=== PATIENT | female | born 1960 | race Caucasian/White ===

== ENCOUNTER 2016-10-14 15:34 | Emergency (ER) | payer MEDICAID ==
[~2016-10-14] VITALS: Ht 170.2 cm; Wt 68.0 kg
[2016-10-14 16:01] VITALS: BP 137/97
== END 2016-10-14 16:19 | disposition home or self-care (01) ==
LOC: ER 15:40
DX: J20.9 Acute bronchitis, unspecified (principal); J45.909 Unspecified asthma, uncomplicated; F17.210 Nicotine dependence, cigarettes, uncomplicated; R51 Headache

== ENCOUNTER 2016-10-30 17:45 | Emergency (ER) | payer MEDICAID ==
[~2016-10-30] VITALS: Ht 170.2 cm; Wt 68.0 kg
[2016-10-30 18:14] VITALS: BP 118/77
[2016-10-30] MEDS ORDERED: HYDROcodone-ACET 10/325MG TAB PO ONE (18:45)
== END 2016-10-30 18:56 | disposition home or self-care (01) ==
LOC: ER 17:46
DX: G89.29 Other chronic pain (principal); M54.9 Dorsalgia, unspecified; F17.210 Nicotine dependence, cigarettes, uncomplicated; J45.909 Unspecified asthma, uncomplicated; Z76.0 Encounter for issue of repeat prescription

== ENCOUNTER 2016-11-05 14:41 | Emergency (ER) | payer MEDICAID ==
[~2016-11-05] VITALS: Ht 170.2 cm; Wt 68.5 kg
[2016-11-05 15:00] VITALS: BP 121/95
== END 2016-11-05 16:43 | disposition home or self-care (01) ==
LOC: ER 14:42
DX: S81.012A Laceration without foreign body, left knee, initial encounter (principal); G89.29 Other chronic pain; M54.2 Cervicalgia; M54.5 Low back pain; J45.909 Unspecified asthma, uncomplicated; F17.200 Nicotine dependence, unspecified, uncomplicated; X58.XXXA Exposure to other specified factors, initial encounter; Y93.89 Activity, other specified; Y99.8 Other external cause status; Y92.89 Other specified places as the place of occurrence of the external cause
CPT/HCPCS: 72040

== ENCOUNTER 2016-11-19 18:02 | Emergency (ER) | payer MEDICAID ==
[~2016-11-19] VITALS: Ht 170.2 cm; Wt 65.0 kg
[2016-11-19 23:01] VITALS: BP 96/73
== END 2016-11-20 00:12 | disposition home or self-care (01) ==
LOC: ER 18:04
DX: S13.4XXA Sprain of ligaments of cervical spine, initial encounter (principal); J45.909 Unspecified asthma, uncomplicated; F17.210 Nicotine dependence, cigarettes, uncomplicated; W19.XXXA Unspecified fall, initial encounter; Y93.89 Activity, other specified; Y99.8 Other external cause status; Y92.89 Other specified places as the place of occurrence of the external cause
CPT/HCPCS: 72040

== ENCOUNTER 2017-07-28 13:34 | Inpatient (IN) | payer MEDICAID ==
[~2017-07-28] VITALS: Ht 162.6 cm; Wt 71.4 kg
[2017-07-28] MEDS ORDERED: SODIUM CHLORIDE 0.9% 1,000 ML IV ONE (13:40)
[2017-07-28 14:12] LABS: Basophils # (auto) 0 uL; Basophils % (auto) 0.2 % (0.0-2.0); Eosinophils # (auto) 0.1 uL; Eosinophils % (auto) 0.6 % (0.0-7.0); Hematocrit 40.6 % (36.0-46.0); Hemoglobin 12.3 g/dL (12.2-16.2); Lymphocytes # (auto) 1.9 uL; Lymphocytes % (auto) 15.9 % (10.0-50.0); Mean Corpuscular Hemoglobin 26.5 pg (28.0-32.0); Mean Corpuscular Hgb Conc. 30.3 g/dL (32.0-36.0); Mean Corpuscular Volume 87.4 fL (80.0-100.0); Mean Platelet Volume 6.6 fL (6.9-10.8); Monocytes # (auto) 0.7 uL; Monocytes % (auto) 5.7 % (0.0-12.0); Neutrophils # (auto) 9.4 uL; Neutrophils % (auto) 77.6 % (37.0-80.0); Platelet Count (auto) 386 10^3/uL (140-450); Red Cell Distribution Width 14.7 % (11.8-14.3); White Blood Cell 12.2 10^3/uL (4.4-10.8)
[2017-07-28] MEDS ORDERED: LORazepam 2MG/ML-1ML VIAL IV ONE (14:30)
[2017-07-28] MEDS ORDERED: ONDANSETRON HCL 4 MG/2 ML VIAL IV ONE (14:30)
[2017-07-28 14:51] LABS: Albumin 3.3 g/dL (3.4-5.0); Alkaline Phosphatase 89 U/L (45-117); Anion Gap 12 (5-15); Aspartate Aminotransferase 9 U/L (15-37); Bilirubin, Total 0.2 mg/dL (0.2-1.0); Blood Urea Nitrogen 19 mg/dL (7-18); Calcium 9.9 mg/dL (8.5-10.1); Carbon Dioxide 20 mmol/L (21-32); Chloride 111 mmol/L (98-107); GFR African American 101 mL/min; GFR Non-African American 83 mL/min; Glucose 154 mg/dL (74-106); Magnesium 2.2 mg/dL (1.6-2.6); Potassium 3.8 mmol/L (3.5-5.1); Sodium 143 mmol/L (136-145)
[2017-07-28] MEDS ORDERED: VANCOMYCIN PER PHARMACY 0 MG IV SCH (16:30)
[2017-07-28] MEDS ORDERED: MORPHINE SULF INJ 2 MG/ML SYRINGE 1ML IV PRN (16:30)
[2017-07-28] MEDS ORDERED: FAMOTIDINE (10MG/ML) 2ML VL IV ONE (16:30)
[2017-07-28] MEDS ORDERED: PANTOPRAZOLE 40 MG/10 ML VIAL IV ONE (16:30)
[2017-07-28] MEDS ORDERED: NITROGLYCERIN 0.4 MG SL TAB SL PRN (16:30)
[2017-07-28] MEDS ORDERED: ONDANSETRON HCL 4 MG/2 ML VIAL IV PRN (16:30)
[2017-07-28] MEDS: SODIUM CHLORIDE 0.9% 1,000 ML IV SCH (16:30)
[2017-07-28] MEDS ORDERED: DEXTROSE (50%) 50ML SYRG IV PRN (16:45)
[2017-07-28] MEDS ORDERED: ENALAPRILAT 1.25 MG/ML-1ML VIAL IV PRN (16:45)
[2017-07-28 16:47] VITALS: BP 152/109
[2017-07-28] MEDS ORDERED: PIPERACILLIN-TAZOB 3.375GM 50 ML IV ONE (17:30)
[2017-07-28] MEDS: InsuLIN REG 1unit/0.01ml Soln (100units/ml) SC SCH (18:00)
[2017-07-28] MEDS: VANCOMYCIN 1GM/250ML 250 ML IV SCH ×2 (18:00→19:01)
[2017-07-28] MEDS: ACCU-CHEK COMFORT CURVE STRIP VI SCH (18:06)
[2017-07-28 18:22] LABS: B-Type Natriuretic Peptide 48.17 pg/mL (0-100)
[2017-07-28 18:25] LABS: Temperature: 22.4 C (20.0-25.0)
[2017-07-28 19:35] LABS: Lactic Acid w/Reflex 2.4 mmol/L (0.4-2.0); REFLEX LACTIC ACID YES OR NO NO
[2017-07-28 19:38] LABS: Urine Bilirubin Negative (Negative); Urine Blood Negative /uL (Negative); Urine Color Yellow (Yellow); Urine Glucose Normal (Normal); Urine Ketone Negative (Negative); Urine Nitrite Negative (Negative); Urine RBC <1 /hpf (0 - 4); Urine Urobilinogen Normal (Negative)
[2017-07-28 21:10] LABS: Cholesterol 183 mg/dL (< 200); HDL Cholesterol 66 mg/dL (40-59); LDL Cholesterol 103 mg/dL (< 100); Triglycerides 165 mg/dL (< 150)
[2017-07-28] MEDS: ALBUTEROL SULF 2.5 MG/0.5ML(0.5%) NEB SOLN NEB SCH (22:31)
[2017-07-28] MEDS: ATORVASTATIN 20 MG TAB PO SCH (22:58)
[2017-07-29] MEDS: ACCU-CHEK COMFORT CURVE STRIP VI SCH ×5 (00:16→21:28)
[2017-07-29] MEDS: PIPERACILLIN-TAZOB 3.375GM 50 ML IV SCH ×5 (00:16→23:32)
[2017-07-29] MEDS ORDERED: LORazepam 2MG/ML-1ML VIAL IV PRN ×2 (01:15→17:00)
[2017-07-29] MEDS ORDERED: HALOPERIDOL LACTATE 5 MG/ML INJ VIAL ONE (02:18)
[2017-07-29 05:38] LABS: Basophils # (auto) 0 uL; Eosinophils # (auto) 0 uL; Eosinophils % (auto) 0.3 % (0.0-7.0); Lymphocytes # (auto) 1.5 uL; Monocytes # (auto) 0.7 uL; Red Cell Distribution Width 14.3 % (11.8-14.3)
[2017-07-29 05:41] LABS: Basophils % (auto) 0.3 % (0.0-2.0); Hematocrit 34.3 % (36.0-46.0); Lymphocytes % (auto) 12.8 % (10.0-50.0); Mean Corpuscular Hemoglobin 26.7 pg (28.0-32.0); Mean Corpuscular Hgb Conc. 32.1 g/dL (32.0-36.0); Mean Platelet Volume 6.8 fL (6.9-10.8); Monocytes % (auto) 5.9 % (0.0-12.0); Neutrophils # (auto) 9.7 uL; Neutrophils % (auto) 80.7 % (37.0-80.0); Platelet Count (auto) 397 10^3/uL (140-450)
[2017-07-29] MEDS: VANCOMYCIN 1GM/250ML 250 ML IV SCH ×2 (05:43→18:40)
[2017-07-29] MEDS: InsuLIN REG 1unit/0.01ml Soln (100units/ml) SC SCH ×5 (06:00→21:28)
[2017-07-29] MEDS ORDERED: ACETAMINOPHEN 500 MG TAB PO ONE (06:00)
[2017-07-29 06:02] LABS: Calcium 8.9 mg/dL (8.5-10.1); Potassium 3.7 mmol/L (3.5-5.1)
[2017-07-29 06:05] LABS: Albumin 2.8 g/dL (3.4-5.0)
[2017-07-29 06:09] LABS: Bilirubin, Total 0.2 mg/dL (0.2-1.0); Total Protein 7.1 g/dL (6.4-8.2)
[2017-07-29] MEDS: ALBUTEROL SULF 2.5 MG/0.5ML(0.5%) NEB SOLN NEB SCH ×3 (06:17→22:00)
[2017-07-29] MEDS: MORPHINE SULF INJ 2 MG/ML SYRINGE 1ML IV PRN ×2 (08:22→12:59)
[2017-07-29] MEDS: ASPirin-EC 81 mg tab PO SCH (09:20)
[2017-07-29] MEDS: SODIUM CHLORIDE 0.9% 1,000 ML IV SCH ×2 (09:20→23:32)
[2017-07-29] MEDS: PANTOPRAZOLE 40 MG/10 ML VIAL IV SCH (09:20)
[2017-07-29] MEDS: FAMOTIDINE (10MG/ML) 2ML VL IV SCH (09:20)
[2017-07-29 11:35] VITALS: BP 119/81
[2017-07-29 12:06] VITALS: BP 119/81
[2017-07-29] MEDS: Boost Glucose Control 8 Ounces PO SCH ×2 (12:50→18:03)
[2017-07-29] MEDS ORDERED: HYDROcodone-ACET 5/325MG TAB PO PRN (13:30)
[2017-07-29 16:47] VITALS: BP 131/91
[2017-07-29] MEDS: ATORVASTATIN 20 MG TAB PO SCH (21:28)
[2017-07-29 22:22] VITALS: BP 143/76
[2017-07-30] MEDS: PIPERACILLIN-TAZOB 3.375GM 50 ML IV SCH ×2 (04:49→12:23)
[2017-07-30 05:04] VITALS: BP 135/91
[2017-07-30 05:55] LABS: Basophils # (auto) 0.1 uL; Basophils % (auto) 0.6 % (0.0-2.0); Eosinophils # (auto) 0.1 uL; Mean Corpuscular Volume 81.5 fL (80.0-100.0); Monocytes # (auto) 0.9 uL
[2017-07-30 05:56] LABS: Eosinophils % (auto) 1.3 % (0.0-7.0); Hematocrit 33.8 % (36.0-46.0); Lymphocytes # (auto) 2.5 uL; Lymphocytes % (auto) 24.1 % (10.0-50.0); Mean Corpuscular Hemoglobin 26.6 pg (28.0-32.0); Mean Corpuscular Hgb Conc. 32.6 g/dL (32.0-36.0); Mean Platelet Volume 6.9 fL (6.9-10.8); Monocytes % (auto) 9.3 % (0.0-12.0); Neutrophils # (auto) 6.6 uL; Neutrophils % (auto) 64.7 % (37.0-80.0); Platelet Count (auto) 382 10^3/uL (140-450); White Blood Cell 10.2 10^3/uL (4.4-10.8)
[2017-07-30] MEDS: InsuLIN REG 1unit/0.01ml Soln (100units/ml) SC SCH ×2 (06:00→12:00)
[2017-07-30] MEDS: ACCU-CHEK COMFORT CURVE STRIP VI SCH ×2 (06:12→12:18)
[2017-07-30 06:25] LABS: Calcium 8.7 mg/dL (8.5-10.1); Potassium 3.3 mmol/L (3.5-5.1)
[2017-07-30] MEDS: ALBUTEROL SULF 2.5 MG/0.5ML(0.5%) NEB SOLN NEB SCH ×2 (06:31→14:00)
[2017-07-30] MEDS: VANCOMYCIN 1GM/250ML 250 ML IV SCH (06:38)
[2017-07-30] MEDS: Boost Glucose Control 8 Ounces PO SCH ×2 (08:05→12:18)
[2017-07-30 08:30] VITALS: BP 135/91
[2017-07-30 09:00] VITALS: BP 130/98
[2017-07-30] MEDS: FAMOTIDINE (10MG/ML) 2ML VL IV SCH (09:35)
[2017-07-30] MEDS: ASPirin-EC 81 mg tab PO SCH (09:35)
[2017-07-30] MEDS: PANTOPRAZOLE 40 MG/10 ML VIAL IV SCH (09:35)
[2017-07-30] MEDS ORDERED: ATOR20TA50 PO (11:59)
[2017-07-30] MEDS ORDERED: LEVO500T21 PO (11:59)
[2017-07-30] MEDS ORDERED: ASP81EC PO (11:59)
[2017-07-30 13:00] VITALS: BP 134/89
[2017-07-30 16:04] VITALS: BP 146/94
== END 2017-07-30 18:22 | disposition left against medical advice (07) | DRG 720 ==
LOC: ER 13:34 → EDBD 13:34 → TELE 13:35 → TELE-WESTW 07-29 11:00
PROVIDERS: ADMIT Internal Medicine; ATTEND Nurse Practitioner Acute Care
DX: A41.9 Sepsis, unspecified organism (principal); G92 Toxic encephalopathy; J18.1 Lobar pneumonia, unspecified organism; E44.0 Moderate protein-calorie malnutrition; E11.22 Type 2 diabetes mellitus with diabetic chronic kidney disease; S09.90XA Unspecified injury of head, initial encounter; N18.2 Chronic kidney disease, stage 2 (mild); I12.9 Hypertensive chronic kidney disease with stage 1 through stage 4 chronic kidney disease, or unspecified chronic kidney disease; E11.65 Type 2 diabetes mellitus with hyperglycemia; E78.5 Hyperlipidemia, unspecified; E87.6 Hypokalemia; Z53.21 Procedure and treatment not carried out due to patient leaving prior to being seen by health care provider; F17.210 Nicotine dependence, cigarettes, uncomplicated; W19.XXXA Unspecified fall, initial encounter; G89.4 Chronic pain syndrome; J45.909 Unspecified asthma, uncomplicated; Z68.27 Body mass index [BMI] 27.0-27.9, adult; Y93.89 Activity, other specified; Y92.009 Unspecified place in unspecified non-institutional (private) residence as the place of occurrence of the external cause; Y99.8 Other external cause status; Z79.82 Long term (current) use of aspirin; Z79.899 Other long term (current) drug therapy
CPT/HCPCS: 36415; 70450; 70551; 71010; 80048; 80053; 80061; 80202; 80307; 80320; 81001; 82607; 82962; 83036; 83605; 83735; 83880; 84443; 84484; 85025; 87040; 87086; 93005; 93306; 93886; 94640; 94761; 96361; 96365; 96375; 97163; C9113; J2405; J2543; J3490

== ENCOUNTER 2018-01-19 17:10 | Emergency (ER) | payer MEDICAID ==
[~2018-01-19] VITALS: Ht 165.1 cm; Wt 64.0 kg
[~2018-01-19 17:10] MED LIST: ASP81EC PO; ATOR20TA50 PO; LEVO500T21 PO
[2018-01-19] MEDS ORDERED: KETOROLAC TROMETH 60MG/2ML VIAL IM ONE (20:00)
[2018-01-19 20:43] VITALS: BP 92/64
== END 2018-01-19 20:47 | disposition home or self-care (01) ==
LOC: ER 17:22
DX: M54.5 Low back pain (principal); M79.1 Myalgia; R42 Dizziness and giddiness; J45.909 Unspecified asthma, uncomplicated; F17.200 Nicotine dependence, unspecified, uncomplicated; E78.5 Hyperlipidemia, unspecified; Z79.82 Long term (current) use of aspirin; W10.9XXA Fall (on) (from) unspecified stairs and steps, initial encounter; Y93.89 Activity, other specified; Y92.89 Other specified places as the place of occurrence of the external cause; Y99.8 Other external cause status
CPT/HCPCS: 72131; 96372; 99284; J1885